=== PATIENT | female | born 1950 | race Two or more races ===

== ENCOUNTER → 2017-03-26 | Outpatient (CLI) | payer OTHER ==
[~2017-03-26] MED LIST: DOLOGESIC CAPSU1 CAP PO; PREVACID30 MG PO; SYNTHROID50 MCG PO; ZETIA10 MG PO
== END | disposition home or self-care (01) ==
LOC: MAMO-SONO 14:55
DX: Z12.31 Encounter for screening mammogram for malignant neoplasm of breast (principal); Z87.898 Personal history of other specified conditions; N60.11 Diffuse cystic mastopathy of right breast; N60.12 Diffuse cystic mastopathy of left breast

== ENCOUNTER 2017-04-02 09:52 | Outpatient (CLI) | payer OTHER | END 2017-04-02 10:12 | disposition home or self-care (01) | LOC: NUCLEAR 09:52 | DX: M85.9 Disorder of bone density and structure, unspecified (principal); I65.29 Occlusion and stenosis of unspecified carotid artery; I73.9 Peripheral vascular disease, unspecified; M81.0 Age-related osteoporosis without current pathological fracture ==

== ENCOUNTER 2018-02-14 14:24 | Emergency (ER) | payer OTHER ==
[~2018-02-14] VITALS: Ht 165.1 cm; Wt 59.0 kg
[2018-02-14] MEDS ORDERED: COZAAR50 MG (15:08)
== END 2018-02-14 16:43 | disposition home or self-care (01) ==
LOC: ER 14:24
DX: M77.52 Other enthesopathy of left foot and ankle (principal); M77.51 Other enthesopathy of right foot and ankle

== ENCOUNTER 2019-01-19 15:29 | Outpatient (CLI) | payer OTHER ==
[~2019-01-19 15:29] MED LIST changes: +COZAAR50 MG
== END 2019-01-19 15:34 | disposition home or self-care (01) ==
LOC: RAD 15:29
DX: J44.1 Chronic obstructive pulmonary disease with (acute) exacerbation (principal)

== ENCOUNTER → 2019-01-19 15:43 | Outpatient (CLI) | payer OTHER | END | disposition home or self-care (01) | LOC: LAB 15:43 | DX: J44.1 Chronic obstructive pulmonary disease with (acute) exacerbation (principal) ==

== ENCOUNTER 2019-04-27 11:15 | Outpatient (CLI) | payer OTHER | END 2019-04-27 13:09 | disposition home or self-care (01) | LOC: NUCLEAR 11:15 | DX: M81.0 Age-related osteoporosis without current pathological fracture (principal) ==

== ENCOUNTER 2020-01-13 12:18 | Emergency (ER) | payer OTHER ==
[~2020-01-13] VITALS: Ht 162.6 cm; Wt 54.4 kg
== END 2020-01-13 18:04 | disposition home or self-care (01) ==
LOC: ER 12:18
DX: K57.92 Diverticulitis of intestine, part unspecified, without perforation or abscess without bleeding (principal); R10.32 Left lower quadrant pain; I10 Essential (primary) hypertension; Z03.818 Encounter for observation for suspected exposure to other biological agents ruled out

== ENCOUNTER 2020-05-20 19:56 | Emergency (ER) | payer OTHER ==
[~2020-05-20] VITALS: Ht 160 cm; Wt 54.4 kg
== END 2020-05-20 23:54 | disposition home or self-care (01) ==
LOC: ER 19:56
DX: I16.1 Hypertensive emergency (principal); I10 Essential (primary) hypertension

== ENCOUNTER 2020-11-27 06:44 | Outpatient (CLI) | payer OTHER | END 2020-11-27 06:45 | disposition home or self-care (01) | LOC: LAB 06:44 | PROVIDERS: ATTEND Orthopaedic Surgery | DX: D69.8 Other specified hemorrhagic conditions (principal); E11.9 Type 2 diabetes mellitus without complications; N39.0 Urinary tract infection, site not specified; E03.8 Other specified hypothyroidism; E78.01 Familial hypercholesterolemia; M85.88 Other specified disorders of bone density and structure, other site; E88.89 Other specified metabolic disorders; M81.8 Other osteoporosis without current pathological fracture; E56.1 Deficiency of vitamin K; E83.42 Hypomagnesemia ==

== ENCOUNTER 2021-10-30 06:31 | Outpatient (CLI) | payer OTHER | END 2021-10-30 06:32 | disposition home or self-care (01) | LOC: LAB 06:31 | PROVIDERS: ATTEND Orthopaedic Surgery | DX: E55.9 Vitamin D deficiency, unspecified (principal); M85.9 Disorder of bone density and structure, unspecified; E56.1 Deficiency of vitamin K; E21.3 Hyperparathyroidism, unspecified; E88.9 Metabolic disorder, unspecified; M81.8 Other osteoporosis without current pathological fracture ==

== ENCOUNTER 2021-11-30 09:13 | Outpatient (CLI) | payer OTHER | END 2021-11-30 09:18 | disposition home or self-care (01) | LOC: NUCLEAR 09:13 | PROVIDERS: ATTEND Orthopaedic Surgery | DX: M81.0 Age-related osteoporosis without current pathological fracture (principal) ==

== ENCOUNTER 2022-04-19 10:43 | Outpatient (CLI) | payer OTHER | END 2022-04-19 10:52 | disposition home or self-care (01) | LOC: TOM 10:43 | PROVIDERS: ATTEND Internal Medicine | DX: R10.9 Unspecified abdominal pain (principal) ==

== ENCOUNTER 2022-05-17 07:45 | Outpatient (CLI) | payer OTHER | END 2022-05-17 08:21 | disposition home or self-care (01) | LOC: RAD 07:45 | PROVIDERS: ATTEND Orthopaedic Surgery | DX: M79.672 Pain in left foot (principal); M79.641 Pain in right hand; M79.644 Pain in right finger(s) ==

== ENCOUNTER 2022-06-18 11:41 | Emergency (ER) | payer OTHER ==
[~2022-06-18] VITALS: Ht 162.6 cm; Wt 53.1 kg
[2022-06-18] MEDS ORDERED: GLUMETZA500 MG PO (11:48)
[2022-06-18] MEDS ORDERED: ZITHROMAX500 MG PO (15:15)
[2022-06-18] MEDS ORDERED: FLONASE ALLERG9.9 ML NASAL (15:15)
[2022-06-18] MEDS ORDERED: TUSNEL DM LIQU473 ML PO (15:15)
== END 2022-06-18 17:19 | disposition home or self-care (01) ==
LOC: ER 11:41
DX: J06.9 Acute upper respiratory infection, unspecified (principal); I10 Essential (primary) hypertension; Z20.822 Contact with and (suspected) exposure to COVID-19; E11.9 Type 2 diabetes mellitus without complications; E03.9 Hypothyroidism, unspecified; Z79.84 Long term (current) use of oral hypoglycemic drugs

== ENCOUNTER → 2023-02-18 08:53 | Outpatient (CLI) | payer OTHER ==
[~2023-02-18 08:53] MED LIST changes: +FLONASE ALLERG9.9 ML NASAL; +GLUMETZA500 MG PO; +TUSNEL DM LIQU473 ML PO; +ZITHROMAX500 MG PO
== END | disposition home or self-care (01) ==
LOC: LAB 08:53
PROVIDERS: ATTEND Internal Medicine Gastroenterology
DX: K44.9 Diaphragmatic hernia without obstruction or gangrene (principal); B96.81 Helicobacter pylori [H. pylori] as the cause of diseases classified elsewhere; K30 Functional dyspepsia; K29.30 Chronic superficial gastritis without bleeding

== ENCOUNTER 2023-02-20 07:34 | Outpatient (CLI) | payer OTHER | END 2023-02-20 07:40 | disposition home or self-care (01) | LOC: NUCLEAR 07:34 | PROVIDERS: ATTEND Internal Medicine | DX: I87.2 Venous insufficiency (chronic) (peripheral) (principal) ==

== ENCOUNTER 2023-11-19 13:23 | Outpatient (CLI) | payer OTHER | END 2023-11-19 13:24 | disposition home or self-care (01) | LOC: LAB 13:23 | PROVIDERS: ATTEND Orthopaedic Surgery | DX: E55.9 Vitamin D deficiency, unspecified (principal); M85.9 Disorder of bone density and structure, unspecified; E56.1 Deficiency of vitamin K ==

== ENCOUNTER 2023-12-01 13:38 | Outpatient (CLI) | payer OTHER | END 2023-12-01 13:40 | disposition home or self-care (01) | LOC: NUCLEAR 13:38 | PROVIDERS: ATTEND Orthopaedic Surgery | DX: M81.0 Age-related osteoporosis without current pathological fracture (principal) ==

== ENCOUNTER 2023-12-11 08:34 | Outpatient (CLI) | payer OTHER | END 2023-12-11 08:52 | disposition home or self-care (01) | LOC: MRI 08:34 | PROVIDERS: ATTEND Orthopaedic Surgery | DX: S93.622A Sprain of tarsometatarsal ligament of left foot, initial encounter (principal) | CPT/HCPCS: 73721 ==

== ENCOUNTER 2024-12-02 09:33 | Outpatient (CLI) | payer OTHER | END 2024-12-02 09:36 | disposition home or self-care (01) | LOC: TOM 09:33 | DX: I65.29 Occlusion and stenosis of unspecified carotid artery (principal) | CPT/HCPCS: 70498; Q9965 ==

== ENCOUNTER 2024-12-27 07:09 | Outpatient (CLI) | payer OTHER | END 2024-12-27 07:10 | disposition home or self-care (01) | LOC: NUCLEAR 07:09 | PROVIDERS: ATTEND Internal Medicine Cardiovascular Disease | DX: I20.89 Other forms of angina pectoris (principal) | CPT/HCPCS: 78452; 93017; A9500 ==

== ENCOUNTER 2025-03-14 11:12 | Emergency (ER) | payer OTHER ==
[~2025-03-14] VITALS: Ht 165.1 cm; Wt 52.2 kg
[2025-03-14] MEDS ORDERED: ELIQUIS5 MG PO (13:21)
[2025-03-14] MEDS ORDERED: NORVASC2.5 MG PO (13:21)
[2025-03-14] MEDS ORDERED: METFORMIN HCL500 M4 PO (13:21)
[2025-03-14] MEDS ORDERED: LOSARTAN POTASS50 MG PO (13:21)
[2025-03-14] MEDS ORDERED: CLONAZEPAM0.5 MG PO (13:22)
[2025-03-14] MEDS ORDERED: CEFTRIAXONE SODIUM 2,000 MG VIAL IV ONE (16:00)
[2025-03-14] MEDS ORDERED: ACETAMINOPHEN 500 MG GEL..CAP PO ONE (16:00)
[2025-03-14] MEDS ORDERED: 0.9 % SODIUM CHLORIDE 1,000 ML IV ONE (16:00)
[2025-03-14] MEDS ORDERED: DEXAMETHASONE SODIUM PHOSPHATE 4 MG/ML VIAL IM ONE (16:00)
[2025-03-14 16:55] LABS: URINE APPEARANCE Clear; URINE BILIRRUBIN Negative (NEGATIVE); URINE BLOOD Moderate; URINE COLOR Dark Yellow; URINE GLUCOSE Negative (NEGATIVE); URINE KETONE Negative (NEGATIVE); URINE LEUKOCYTE Small; URINE NITRATE Positive; URINE PROTEIN Negative (NEGATIVE); URINE UROBILINOGEN 1.0 E.U./dl
[2025-03-14 16:57] LABS: BASO % 0.4 % (0.1-1.2); EOS # 0.04 (0.04-0.54); EOS % 0.5 % (0.7-7.0); LYMPH # 1.87 (1.18-3.74); LYMPH % 23.8 % (19.3-53.1); MEAN PLATELET VOLUME 10.80 fl (9.4-12.4); MONO # 0.51 (0.24-0.82); MONO % 6.5 % (4.7-12.5); NEUT # 5.38 (1.56-6.13); NEUT % 68.5 % (34.0-71.1); RED CELL DISTRIBUTION WIDTH 12.6 % (11.6-14.4)
[2025-03-14 16:59] LABS: URINE BACTERIA 78.9 uL (0.0-1933); URINE CAST 0.00 uL (0.0-1.40); URINE EPITHELIAL CELLS 2.2 uL (0.0-38.8); URINE RBC 3.1 uL (0.0-20.8); URINE WBC 19.2 uL (0.0-23.2)
[2025-03-14 17:40] LABS: ALT/SGPT 28 U/L (12-78); AST/SGOT 22 U/L (15-37); BILIRUBIN TOTAL 0.35 mg/dL (0.3-1.2); BUN CREA RATIO 29 (7.0-25.0); CREATININE SERUM 0.65 mg/dL (0.55-1.02); GFR 88.62; GLOBULINA 3.6 G/DL (2.4-3.5); GLUCOSE FASTING 148 mg/dL (65-100); OSMOLALITY SERUM 286 MOSM/KG (275-295)
[2025-03-14] MEDS ORDERED: CEPHALEXIN500 MG PO (19:22)
== END 2025-03-14 19:40 | disposition home or self-care (01) ==
LOC: ER 11:12
DX: N39.0 Urinary tract infection, site not specified (principal); R30.0 Dysuria; R10.20 Pelvic and perineal pain unspecified side; R10.9 Unspecified abdominal pain; I10 Essential (primary) hypertension; E03.8 Other specified hypothyroidism; E11.9 Type 2 diabetes mellitus without complications; Z79.84 Long term (current) use of oral hypoglycemic drugs; Z88.6 Allergy status to analgesic agent
CPT/HCPCS: 36415; 74176; 96365; 96366; 96372; 99284; J0696; J1100; J7030